=== PATIENT | male | born 1975 | race Caucasian/White ===

== ENCOUNTER 2023-10-11 08:17 | Emergency (ER) | payer OTHER ==
[2023-10-11] VITALS (21 sets, daily range): BP systolic 152–212; BP diastolic 74–148
[~2023-10-11] VITALS: Ht 175.3 cm; Wt 98.4 kg
[~2023-10-11 08:17] MED LIST: DEPO-MEDROL80 MG/ML IM; FLEXERIL PO; KETOROLAC60 MG/2 ML IJ; NAPROSYN500 MG PO
[2023-10-11] MEDS ORDERED: LORazepam 2 MG/ML IV ONE (08:35)
[2023-10-11] MEDS ORDERED: COZAAR100 MG PO (08:51)
[2023-10-11] MEDS ORDERED: AMLODIPINE BESY10 MG PO (08:51)
[2023-10-11] MEDS ORDERED: LOPRESSOR 550 MG/TAB PO ×2 (08:52→08:53)
[2023-10-11] MEDS ORDERED: DILTIAZEM HCL 25 MG/5 ML SDV IV ONE (09:35)
[2023-10-11] MEDS ORDERED: METHOCARBAMOL500 MG PO (11:17)
[2023-10-11 12:16] LABS: BASO% 0.1 % (0-3); EOS% 0.1 % (0-8); HEMATOCRIT 44.3 % (39.0-50.0); HEMOGLOBIN 15.6 g/dl (14.0-18.0); IMMATURE GRANULOCYTES 0.3 % (0.0-5.0); LYMPH% 11.1 % (15-41); MEAN CELL VOLUME 87.7 fL CALC (80.0-100.0); MEAN CORPUSCULAR HGB 30.9 pG CALC (26.0-32.0); MEAN CORPUSCULAR HGB CONC 35.2 g/dL CAL (32.0-36.0); MONO% 4.1 % (2-13); NEUT# 8.05 thou/uL (1.82-7.42); NEUT% 84.3 % (42-76); RED BLOOD COUNT 5.05 mill/uL (4.70-6.10); RED CELL DISTRI WIDTH 11.7 % (11.5-15.5)
[2023-10-11 12:32] LABS: ALBUMIN 4.6 g/dL (3.2-5.0); BILIRUBIN, TOTAL 1.2 mg/dL (0.2-1.3); CREATININE 0.8 mg/dL (0.7-1.3); POTASSIUM 3.7 mmol/l (3.5-5.1); TOTAL PROTEIN 8.6 g/dL (6.3-8.2)
[2023-10-11] MEDS ORDERED: HYDROmorphone HCL 2 MG/AMP IV ONE (13:25)
== END 2023-10-11 14:03 | disposition home or self-care (01) | DRG 552 ==
LOC: ED 08:17
PROVIDERS: Family Medicine
DX: M47.26 Other spondylosis with radiculopathy, lumbar region (principal)
CPT/HCPCS: J2060